=== PATIENT | female | born 1980 | race Caucasian/White ===

== ENCOUNTER → 2024-03-24 10:57 | Outpatient (REF) | payer BC, SELFPAY ==
[2024-03-24 13:18] LABS: Rubella Positive
[2024-03-26 07:55] LABS: Quantiferon Mitogen minus NIL 9.95 IU/mL; Quantiferon NIL 0.05 IU/mL; Quantiferon Plus TB1 minus NIL 0.03 IU/mL (<=0.34); Quantiferon Plus TB2 minus NIL 0.03 IU/mL (<=0.34); Quantiferon TB Gold Plus Negative (Negative)
== END ==
LOC: REG 10:57
PROVIDERS: ATTENDING PHYSICIAN Nurse Practitioner Family; FAMILY PHYSICIAN Family Medicine
DX: Z23 Encounter for immunization (principal)
CPT/HCPCS: 36415; 86480; 86706; 86735; 86762; 86765; 86787